=== PATIENT | female | born 1990 | race Caucasian/White ===

== ENCOUNTER 2018-01-02 16:59 | Inpatient (IN) ==
--- OUTSIDE RECORDS SUMMARY | 2018-01-02 17:03 | External Medical Summary | Continuity of Care Document ---
:1990 Author Organization [facility] Address [address] [place] [id number] Phone Care Team Providers Name Role Phone Elder DOAlvaroie Unavailable Unavailable Allergies, Adverse Reactions, Alerts Substance Reaction Severity Status HYDROCODONE BITARTRATE Nausea/Vomiting Unknown Active Medications Medication Instructions Dosage Effective Dates Status Comments (start - stop) heparin (porcine) inject 1ml by - Active 10,000 unit/mL subcutaneous route injection solution every 12 hours IRON (unknown take 1 by Oral route - Active strength) 2 times every day 28 mg take 1 tablet by Not Available - Active iron-800 mcg oral route every tablet day Problems Condition Effective Dates (start - stop) Clinical Status Supervision of other high risk - pregnancies, third trimester 34 weeks gestation of - Personal history of pulmonary embolism - Supervision of other high risk - pregnancies, first trimester Pap Smear Screening, Cervix - 13 weeks gestation of - Personal history of pulmonary embolism - Supervision of other high risk - pregnancies, third trimester 30 weeks gestation of - Personal history of pulmonary embolism - Supervision of other high risk - pregnancies, second trimester 24 weeks gestation of - Personal history of pulmonary embolism - Supervision of other high risk - pregnancies, second trimester 20 weeks gestation of - Personal history of pulmonary embolism - Supervision of other high risk - pregnancies, second trimester 16 weeks gestation of - Personal history of pulmonary embolism - Supervision of other high risk - pregnancies, third trimester 32 weeks gestation of - Personal history of pulmonary embolism - Supervision of other high risk - pregnancies, third trimester Oth diseases and conditions compl - preg/chldbrth 28 weeks gestation of - Personal history of pulmonary embolism - Supervision of other high risk - pregnancies, third trimester Oth diseases and conditions compl - preg/chldbrth 30 weeks gestation of - Personal history of pulmonary embolism - Supervision of other high risk - pregnancies, third trimester Oth diseases and conditions compl - preg/chldbrth 34 weeks gestation of - Personal history of pulmonary embolism - Supervision of other high risk - pregnancies, third trimester Oth diseases and conditions compl - preg/chldbrth 36 weeks gestation of - Personal history of pulmonary embolism - GERD Active Procedures Procedure Date OB Visit No Charge Immuniz admnin, 1 vac, sngl/combo 19 Yrs + TDAP VACCINE >7 IM Results Test Name Date and Time Measure Units Reference Range Abnormal Flag Comments Panel Description: GLUCOSE TOLERANCE TEST, GESTATIONAL,4SPEC(100G) GLUCOSE, FASTING 08:01:00 91 mg/dL 65-94 N GLUCOSE, 1 HOUR 08:01:00 159 mg/dL <180 N GLUCOSE, 2 HOUR 08:01:00 125 mg/dL <155 N GLUCOSE, 3 HOUR 08:01:00 62 mg/dL <140 L [id number] 08:01:00 See Below Verduzco/Cornellstan Criteria: Two or more values greater than the above reference intervals are suggestive of gestational diabetes. REPORT COMMENT:FASTING:YESTe st performed at [facility] [id number] MARIAJOSE [place], [place] [id number]: BALDEMAR RODRIGES DO,MPH Advance Directives Directive Yes / No Effective Date File Name Unknown Encounters Encounter Practice Location Reason(s) Diagnoses Date Provider Care Team Description For Visit Members Petra [place] Supervision of Lauren Referring In Womens other high risk 1-201 Mouna. Provider: Health [place], pregnancies, 8 700 [address] third Medical Lauren L, 1522, trimesterOth Center [address] [place] [address], diseases and , [facility], conditions compl 120, Center , preg/[id number] [place], Matt 120, [place] weeks gestation Julio Cesar ANGEL, tel: of [phone] [place], pregnancyPersonal , [place]. [id number]. history of tel: tel: pulmonary [phone] embolism Petra [place] Sobbing In Womens [address] Health [place], 8 700 [address], [place], [place], [address] [id number], 120, [place] Julio Cesar, tel: [place], [address], [place]. tel: [phone] Petra [place] Supervision of Sobbing Referring In Womens other high risk 5-[address] Provider: Health [place], pregnancies, 8 700 Mouna [address] third [email or web address] Medical Lauren L, 1522, weeks gestation Center [address] [place] [address], pregnancyPersonal Suite Center [id number], history of 120, Matt 120, [place] pulmonary Julio Cesar [place], tel: [place], [address], [id number]. [place]. tel: tel: [phone] Petra [place] Supervision of Lauren Referring In Womens Ultrasound other high risk 5-201 Mouna. Provider: Health PA, pregnancies, 8 700 Mouna [address] third Medical Lauren L, 1522, trimesterOth Center [address] [place] [address], diseases and , [facility], conditions compl 120, Center [id number], [id number] [place], Matt 120, [place] weeks gestation Julio Cesar ANGEL, tel: of [phone] [place], pregnancyPersonal , [place]. [id number]. history of tel: tel:[phone] pulmonary [phone] embolism [facility] Jul[facility] Supervision of Davide-0 Lauren Referring In Womens other high risk 2-201 Mouna. Provider: Health [place], pregnancies, 8 700 Mouna [address] third [id number] Medical Lauren L, 1522, weeks gestation Center [address] [place] [address], of Matt Bales, pregnancyPersonal 120, Center [id number], history of Julio Cesar Matt 120, [place] pulmonary Julio Cesar ANGEL, tel:+[phone] embolism [phone] [place], , [place]. [id number]. tel: tel:[phone] Petra [place] Supervision of Dec-2 Lauren Referring In Womens other high risk 0-201 Mouna. Provider: Health PA, pregnancies, 7 700 Mouna [address] third [email or web address] Medical Lauren L, 1522, weeks gestation Center [address] [place] [address], of Matt Bales, pregnancyPersonal 120, Center , history of Julio Cesar Matt 120, [place] pulmonary Julio Cesar ANGEL, tel: embolism [phone] [place], , [place]. [id number]. tel: tel:[phone] Petra [place] Supervision of Dec-2 Lauren Referring In Womens Ultrasound other high risk 0-201 Mouna. Provider: Health PA, pregnancies, 7 700 Mouna [address] third Medical Lauren L, 1522, trimesterOth Center [address] [place] [address], diseases and Matt Bales, conditions compl 120, Center [id number], [id number] Julio Cesar Matt 120, [place] weeks gestation Julio Cesar ANGEL, tel:+2 of [phone] [place], pregnancyPersonal , [place]. [id number]. history of tel: tel:[phone] pulmonary [phone] embolism [facility] Jul[facility]esar Supervision of Dec-0 Lauren Referring In Womens other high risk 6-201 Mouna. Provider: Health PA, pregnancies, 7 700 Mouna [address] third Medical Lauren L, 1522, trimesterOth Center [address] [place] [address], diseases and Matt Bales, conditions compl 120, Center [id number], preg/ Julio Cesar, Matt 120, [place] weeks gestation Julio Cesar ANGEL, tel:+ of [phone] [place], pregnancyPersonal , [place]. [id number]. history of tel: tel:[phone] pulmonary [phone] embolism [facility] Jul[facility] Supervision of Nov0 Lauren Referring In Womens other high risk 8-201 Mouna. Provider: Health PA, pregnancies, 7 700 Mouna [address] Box second Medical Lauren L, 1522, [email or web address] weeks Center [address] [place], gestation of Matt Bales, pregnancyPersonal 120, Center [id number], history of Julio Cesar, Matt 120, [place] pulmonary Julio Cesar ANGEL, tel:[phone] embolism [phone] [place], , [place]. [id number]. tel: tel:[phone] Petra [place] Supervision of Lauren Referring In Womens other high risk 1-201 Mouna. Provider: Health PA, pregnancies, 7 700 Mouna [address] Box second Medical Lauren L, 1522, [id number] weeks Center [address] [place] [address], gestation of Matt Bales, pregnancyPersonal 120, Center [id number], history of Julio Cesar, Matt 120, [place] pulmonary Julio Cesar ANGEL, tel:+2 embolism [phone] [place], , [place]. [id number]. tel: tel:[phone] Petra [place] Supervision of Jul- Lauren Referring In Womens other high risk 3-201 Mouna. Provider: Health PA, pregnancies, 7 700 Mouna PO Box second Medical Lauren L, 1522, [id number] weeks Center [address] [place] [address], gestation of Matt Bales, pregnancyPersonal 120, Center [id number], history of Julio Cesar, Matt 120, [place] pulmonary Julio Cesar ANGEL, tel:+2 embolism [phone] [place], , [place]. [id number]. tel: tel:[phone] Petra [place] Supervision of Lauren Referring In Womens other high risk 3-201 Mouna. Provider: Health PA, pregnancies, 7 700 Mouna PO Box first Medical Lauren L, 1522, trimesterPap Center [address] [place], Smear Screening, , [facility], [id number] weeks 120, Center [id number], gestation of [place], [facility] 120, [place] pregnancyPersonal Julio Cesar ANGEL, tel: history of [phone] [place], [address] pulmonary , [place]. [id number]. embolism tel: tel: [phone] Family History Family Member Diagnosis Age At Onset Paternal Grandfather Diabetes No family history of Venous Thrombosis Immunizations Vaccine Date Status Comments Tdap completed Source: New Immunization Record Tdap completed Source: New Immunization Record Influenza, injectable, completed Source: New Immunization Record quadrivalent, preservative free, 3 yrs or older Payers Payer name Insurance type Covered republican ID Authorization(s) [employer] - Medicaid [place] [id number] [employer] - Medicaid [place] [id number] [employer] - Medicaid [place] [id number] [employer] - Medicaid [place] [id number] Social History Type Description Quantity Date Captured Alcohol Use Details No Caffeine Use Details Unknown Tobacco Use Status Smoking Status Former smoker Vital Signs Date / Height Weight BMI Pulse Blood Temperature Respiratory Body Head BMI Time: Rate Pressure Rate Surface Circumference percentile Area 213.80 38.1 /72 -2018 lbs 1 mm[Hg] 10:42 kg/m AM eter (2) Chief Complaint And Reason For Visit Unknown Chief Complaint And Reason For Visit Reason For Referral Reason For Referral Unknown Plan Of Care Date Type Action Status Goal Tobacco cessation counseling completed Future Order: Radiology Order Ultrasound OB Follow-up ([id number]) Ordered Future Order: Radiology Order Ultrasound OB Follow-up ([id number]) Ordered Date Type Problem Goal Intervention Status Start Date Unknown. History Of Present Illness Encounter Date Complaint History Of Present Illness This patient has no known history of present illness Functional Status Encounter Date Functional Assessment Cognitive Assessment Unknown Medications Administered Medication Instructions Dosage Effective Dates (start - stop) Status Comments Drug Treatment Unknown Instructions Date Instruction Additional Information breast or bottle feeding anesthesia / analgesia plans sexual activity exercise HIV and other routine tests risk factors identified by history anticipated course of care nutrition and weight gain counseling, special diet toxoplasmosis precautions (cats / raw meat) indications for ultrasound influenza vaccine environmental / work hazards travel use of any medications (including supplements, vitamins, herbs, OTC drugs) domestic violence seat belt use childbirth classes / hospital facilities hospital registration genetic testing new ob handbook Zika virus assessment & precautions
--- OUTSIDE RECORDS SUMMARY | 2018-01-02 17:03 | External Medical Summary | Continuity of Care Document ---
:1990 Author Organization [facility] Address [address] [place], [place] [phone] Phone Care Team Providers Name Role Phone Elder DO, Tamara Unavailable Unavailable Allergies, Adverse Reactions, Alerts Substance Reaction Severity Status HYDROCODONE BITARTRATE Nausea/Vomiting Unknown Active Medications Medication Instructions Dosage Effective Dates Status Comments (start - stop) Lovenox 40 mg/0.4 mL inject 0.4 40 MG - Active subcutaneous syringe milliliter by subcutaneous route every day 28 mg take 1 tablet by Not Available - Active iron-800 mcg tablet oral route every day Problems Condition Effective Dates (start - [...] embolism - GERD Active Procedures Procedure Date Unknown Results Test Name Date and Time Measure Units Reference Range Abnormal Flag Comments Unknown NOTE: This patient has pending results not included in this document. Advance Directives Directive Yes / No Effective Date File Name Unknown Encounters Encounter Practice Location Reason(s) Diagnoses Date Provider Care Team Description For Visit Members Petra [place] Supervision of Lauren Referring In [facility] other high risk 1-201 Mouna. Provider: Health [place], pregnancies, 7 700 Mouna [address] second [id number] Festus Holden, 1522, weeks gestation of Center [address] [place], pregnancyPersonal Matt Bales, history of 120, Center , pulmonary embolism Julio Cesar [facility] 120, [place] Julio Cesar ANGEL, tel:[phone] [place], , [place]. [id number]. tel: tel: [phone] [facility] Sep-2 Lauren In Womens 7-201 Mouna. Health PA, 7 700 [address] Medical [address], Center [place], Matt Bales, 120, [id number], [place], [place], tel:[phone] , [place]. tel: [phone] Petra [place] Supervision of Sep-1 Lauren Referring In Womens other high risk 3-201 Mouna. Provider: Health MICHOACANO, pregnancies, 7 700 Mouna [address] second [id number] Medical Lauren L, 1522, weeks gestation of Center 700 [place], pregnancyPersonal Matt Bales, history of 120, [place] , pulmonary embolism Julio Cesar [facility] 120, [place] Julio Cesar ANGEL, tel:[phone] [place], , [place]. [id number]. tel: tel: [phone] Associates [facility] Supervision of Jun- Lauren Referring In Womens other high risk 3-201 Mouna. Provider: Health MICHOACANO, pregnancies, first 7 700 Mouna PO Box trimesterPap Smear Medical Lauren L, 1522, Screening, Center [address] [place] [address], [id number] weeks Matt Baels, gestation of 120, [place] , pregnancyPersonal Julio Cesar [facility] 120, [place] history of Julio Cesar ANGEL, tel: pulmonary embolism [phone] [place], , [place]. [id number]. tel: tel: [phone] Family History Family Member Diagnosis Age At Onset Paternal Grandfather Diabetes No family history of Venous Thrombosis Immunizations Vaccine Date Status Comments Influenza, injectable, completed Source: New Immunization Record quadrivalent, preservative free, 3 yrs or older Payers Payer name Insurance type Covered republican ID Authorization(s) [employer] - Medicaid MC [id number] [employer] - Medicaid [place] [id number] Social History Type Description Quantity Date Captured Unknown Vital Signs Date / Height Weight BMI Pulse Blood Temperature Respiratory Body Head BMI Time: Rate Pressure Rate Surface Circumference percentile Area Unknown Chief Complaint And Reason For Visit Unknown Chief Complaint And Reason For Visit Reason For Referral Reason For Referral Unknown Plan Of Care Date Type Action Status Goal Tobacco cessation counseling completed Appointment Jose Schrader BOOKED Date Type Problem Goal Intervention Status Start Date Unknown. History Of Present Illness Encounter Date Complaint History Of Present Illness This patient has no known history of present illness Functional Status Encounter Date Functional Assessment Cognitive Assessment Unknown Medications Administered Medication Instructions Dosage Effective Dates (start - stop) Status Comments Drug Treatment Unknown Instructions Date Instruction Additional Information sexual activity exercise HIV and other routine [...]
--- OUTSIDE RECORDS SUMMARY | 2018-01-02 17:04 | External Medical Summary | Continuity of Care Document ---
:1990 Author Organization [facility] Address [address] [place], [place] [phone] Phone Care Team Providers Name Role Phone [...] Procedures Procedure Date OB Visit No Charge Results Test Name Date and Time Measure Units Reference Range Abnormal Flag Comments Unknown Advance Directives Directive Yes / No Effective Date File Name Unknown Encounters Encounter Practice Location Reason(s) Diagnoses Date Provider Care Team Description For Visit Members [facility] Supervision of Lauren Referring In [facility] other high risk 3-201 Mouna. Provider: Health [place], pregnancies, 7 700 Mouna [address] second [id number] Festus Holden, 1522, weeks gestation of Center [address] [place], pregnancyPersonal Matt Bales Medical [place], history of 120, Center [id number], pulmonary embolism Matt [place] 120, [place] Julio Cesar ANGEL, tel:[phone] [place], , [place]. [id number]. tel: tel:[phone] [facility] Supervision of Lauren Referring In Womens other high risk 3-201 Mouna. Provider: Health PA, pregnancies, first 7 700 Mouna PO Box trimesterPap Smear Festus Holden, 1522, Screening, Center [address] [place], [id number] Dr [facility] Medical [place], gestation of 120, Center [id number], pregnancyPersonal Julio Cesar [facility] 120, [place] history of Julio Cesar ANGEL, tel: pulmonary embolism [phone] [place], , [place]. [id number]. tel: tel:[phone] Family History Family Member Diagnosis Age At Onset Paternal Grandfather Diabetes No family history of Venous Thrombosis Immunizations Vaccine Date Status Comments Unknown Payers Payer name Insurance type Covered alliance party ID Authorization(s) [employer] - Medicaid MC [id number] Social History Type Description Quantity Date Captured [...]
--- OUTSIDE RECORDS SUMMARY | 2018-01-02 17:04 | External Medical Summary ---
:[address] [facility] Address [address] [place] [address] Care Team Providers Name Role Phone ElderTamara Unavailable Unavailable PROBLEMS Type Condition ICD9-CM [id number] Onset Condition SNOMED Code Code Code Dates Status Problem Personal history V12.55 Active 617037655 of pulmonary embolism Problem Acute pharyngitis J02.8 Active 931949842 due to other specified organisms Problem Other dysphagia R13.19 Active 80494713 Problem Streptococcal sore 034.0 Active 42557061 throat Problem Other pulmonary 415.19 Active 0884566769185 embolism and infarction Problem Generalized R10.84 Active 772096203 abdominal pain Problem Gastro-esophageal K21.9 Active 445807024 reflux disease without esophagitis ALLERGIES Unknown Allergies SOCIAL HISTORY No smoking Hx information available PLAN OF CARE VITAL SIGNS MEDICATIONS Unknown Medications RESULTS No Results PROCEDURES No Known procedures IMMUNIZATIONS No Known Immunizations
[2018-01-02] MEDS ORDERED: METHYLERGONOVINE 0.2 MG/ML INJECTION IM PRN (17:23)
[2018-01-02] MEDS ORDERED: DINOPROSTONE 10 MG VAGINAL INSERT VG ONE (17:23)
[2018-01-02] MEDS ORDERED: LIDOCAINE 1% (10mg/ml) 2mL INJ PF SDV ID PRN (17:23)
[2018-01-02] MEDS ORDERED: SALINE FLUSH 10ml SYRINGE IV PRN (17:23)
[2018-01-02] MEDS ORDERED: CARBOPROST 250 MCG/ML INJECTION IM PRN (17:23)
[2018-01-02] MEDS ORDERED: ACETAMINOPHEN 500 MG TABLET PO PRN (17:23)
[2018-01-02] MEDS ORDERED: TERBUTALINE 1 MG/ML VIAL SQ PRN (17:23)
[2018-01-02] MEDS ORDERED: MAG-AL + SIM ORAL LIQUID 30ml PO PRN (17:23)
[2018-01-02 20:33] VITALS: BMI 36.4
[2018-01-03] MEDS ORDERED: AMPICILLIN 2 GM in NS 100 ML IV ONE (02:00)
[2018-01-03] MEDS: LR 1,000 ML IV PRN ×4 (02:07→22:35)
[2018-01-03] MEDS: AMPICILLIN 1 GM in NS 100 ML IV SCH ×5 (05:52→21:59)
[2018-01-03] MEDS: OXYTOCIN DRIP 30 UNIT/500 ML ML IV PRN (05:53)
[2018-01-03] MEDS: D5LR 1,000 ML IV PRN ×2 (05:53→15:07)
[2018-01-03] MEDS ORDERED: NALOXONE 0.4 MG/ML INJECTION IVP PRN (07:45)
[2018-01-03] MEDS ORDERED: DiphenhydrAMINE 50 MG/ML INJECTION IVP PRN (07:45)
[2018-01-03] MEDS ORDERED: ONDANSETRON 4 MG/2 ML INJECTION IVP PRN (07:45)
[2018-01-03] MEDS ORDERED: ROPIVACAINE 1% 10MG/ML INJ 200 MG, SUFentanil 50 MCG in NS 100 ML EPI PRN (07:45)
--- NOTE | 2018-01-03 07:45 | Anesthesia Preoperative Report ---
Anesthesia Epidural/Spinal Rec - Date and Time Date: 01/03/18 Procedure: Labor Epidural Plan: Epidural - Vital Signs /Para: P:0 - Medictaions & Allergies Inpatient Medications: Current Medications Acetaminophen (Tylenol) 500 - 1,000 mg PO Q4H PRN PRN Reason: Pain Al Hydroxide/Mg Hydroxide (Maalox Plus) 30 ml PO Q3H PRN PRN Reason: Indigestion Calcium Carbonate (Tums) 500 - 1,000 mg PO Q2H PRN PRN Reason: Indigestion Carboprost Tromethamine (Hemabate) 250 mcg IM O PRN PRN Reason: .Downtime Diphenhydramine HCl (Benadryl) 50 mg PO HS PRN PRN Reason: Sleep Lactated Ringer's (Lactated Ringers) 1,000 mls @ 999 mls/hr IV .Q1H1M PRN Last Admin: 01/03/18 07:27 Dose: 999 mls/hr Ampicillin Sodium 1 gm/ Sodium (Chloride) 100 mls @ 200 mls/hr IV Q4H AILYN Last Infusion: 01/03/18 06:22 Dose: Infused Dextrose/Lactated Ringer's (Dextrose 5%-Lactated Ringers) 1,000 mls @ 125 mls/ hr IV .Q8H PRN PRN Reason: Labor Last Admin: 01/03/18 05:53 Dose: 125 mls/hr Oxytocin (Pitocin Drip) 30 unit in 500 mls @ 2 mls/hr IV .Q24H PRN; Protocol PRN Reason: Induction/Augmentation Last Admin: 01/03/18 05:53 Dose: 2 mls/hr Lidocaine HCl (Xylocaine-Mpf 1% Vial) 0.2 mg ID O PRN PRN Reason: IV Start Methylergonovine Maleate (Methergine) 0.2 mg IM O PRN Misoprostol (Cytotec) 800 mcg NM ONCE PRN Sodium Chloride (Iv Flush) 10 - 80 ml IV PRN PRN PRN Reason: Flushing Terbutaline Sulfate (Brethine) 0.25 mg SQ PRN PRN Allergies/Adverse Reactions: Allergies Allergy/AdvReac Type Severity Reaction Status Date / Time hydrocodone Allergy Nausea Verified 01/02/18 20:30 - Home Medications Home Medications: Home Medications Medication Instructions Recorded Confirmed Type Heparin 1 ml INJ Q12HR 01/03/18 01/03/18 History Iron 1 tab PO DAILY 01/03/18 01/03/18 History 19 Tablet 1 tab PO DAILY 01/03/18 01/03/18 History - Medical History Respiratory: Reports: Pulmonary Embolism Cardiovascular: Reports: Other (PE at age 22) Gastrointestional: Reports: Gastroesophageal Reflux Disease (hx with bacterial infection) Neuro/Musculoskeletal: Denies: HX.MS.OSAR, Back Problems, Cerebrovascular Accident, Depression, Headaches, Loss of Consciousness, Muscle Weakness, Neuromuscular Disorder, Paralysis, Paresthesia, Syncope, Seizures, Other Renal/Endocrine: DENIES: Diabetes Mellitus Type 1, Diabetes Mellitus Type 2, Renal Failure, Dialysis, Thyroid Disease, Weight Loss, Weight Gain, Other Other History: Reports: Now - Surgical History Reproductive Surgery/Treatment: DENIES: Section Anesthesia Reactions: None Hx Family Anesthesia Reaction: No History of Motion Sickness: No - Social History Smoking Status: Former smoker Substance Use Type: does not use - Pertinent Findings Lab Data: CBC and BMP 01/02/18 17:42 - Physical Exam Respiratory Exam: lungs clear, bilateral breath sounds equal Cardiovascular Exam: regular rate and rhythm, no murmur - Airway Assessment Mallampati Score: III TMD: 3 Fingerbreadths Neck Extension: fair Overall Assessment: may be difficult intubation - ASA ASA Score: 2 - Discussion Discussion: Discussed risks/options/alternatives of anesthesia and questions answered. Patient consents. Nursing pain assessment noted. Anesthesia Discussion: spouse Attestation Statement: Prior to the delivery of any anesthetic medication, I examined the patient, developed the plan, obtained the patient's consent and discussed the risk and benefits of the procedure with the patient/guardian.
[2018-01-03] MEDS: CALCIUM CARBONATE Chewable 500mg TABLET PO PRN ×3 (10:05→17:26)
[2018-01-04] MEDS: OXYTOCIN DRIP 30 UNIT/500 ML ML IV PRN (02:16)
[2018-01-04] MEDS: D5LR 1,000 ML IV PRN (02:16)
[2018-01-04] MEDS: AMPICILLIN 1 GM in NS 100 ML IV SCH (02:21)
[2018-01-04] MEDS: CALCIUM CARBONATE Chewable 500mg TABLET PO PRN (03:25)
[2018-01-04] MEDS ORDERED: CEFAZOLIN PREMIX (MC ONLY) 2 GM/50 ML BAG IV ONE ×2 (03:47→07:07)
--- NOTE | 2018-01-04 07:06 | Progress Note ---
OB PP Progress Note Free Text - Date Date: 01/04/18 - Progress Note Progress Note: Pt has not progressed past AC/100%/-2 for about 3 hours. FHTs have been Cat 1 with good reactivity and variability. Pt is comfortable with her epidural. I have recommended for arrest of dilatation. We have reviewed the potential risks of surgery (bleeding, infection, etc) vs the risks of continuing induction. She agrees to move to . Q&A
[2018-01-04] MEDS ORDERED: FAMOTIDINE PB 20 MG/50 ML BAG IV ONE (07:07)
[2018-01-04] MEDS ORDERED: CITRIC ACID/SODIUM CITRATE 30ml PO ONE (07:07)
[2018-01-04] MEDS ORDERED: PHENYLEPHRINE INJ 10 MG/ML VIAL IV ONE (07:11)
[2018-01-04] MEDS ORDERED: ONDANSETRON 4 MG/2 ML INJECTION ONE (07:12)
[2018-01-04] MEDS: OXYTOCIN BOLUS BAG 30 UNIT/500 ML ML IV SCH ×2 (07:42→08:20)
[2018-01-04] MEDS ORDERED: MORPHINE SULFATE PF 5mg/10ml INJ (Duramorph) ONE (08:03)
--- NOTE | 2018-01-04 08:11 | Anesthesia Preoperative Report ---
Anesthesia Preoperative Record - Date and Time Date: 01/04/18 Preoperative Diagnosis: cervical ripening Proposed Procedure: NPO Since Date: 01/03/18 NPO Since Time: 23:00 Allergies/Adverse Reactions: Allergies Allergy/AdvReac Type Severity Reaction Status Date / Time hydrocodone Allergy Nausea Verified 01/02/18 20:30 - Vital Signs Height and Weight: Height 5 ft 4 in Weight 96.36 kg Body Mass Index 36.4 - Medications Inpatient Medications: Current Medications Acetaminophen (Tylenol) 500 - 1,000 mg PO Q4H PRN PRN Reason: Pain Al Hydroxide/Mg Hydroxide (Maalox Plus) 30 ml PO Q3H PRN PRN Reason: Indigestion Calcium Carbonate (Tums) 500 - 1,000 mg PO Q2H PRN PRN Reason: Indigestion Last Admin: 01/04/18 03:25 Dose: 1,000 mg Carboprost Tromethamine (Hemabate) 250 mcg IM O PRN PRN Reason: .Downtime Diphenhydramine HCl (Benadryl) 50 mg PO HS PRN PRN Reason: Sleep Diphenhydramine HCl (Benadryl) 25 - 50 mg IVP Q3H PRN PRN Reason: Itching Lactated Ringer's (Lactated Ringers) 1,000 mls @ 999 mls/hr IV .Q1H1M PRN Last Admin: 01/03/18 22:35 Dose: 999 mls/hr Ampicillin Sodium 1 gm/ Sodium (Chloride) 100 mls @ 200 mls/hr IV Q4H AILYN Last Infusion: 01/04/18 02:42 Dose: Infused Dextrose/Lactated Ringer's (Dextrose 5%-Lactated Ringers) 1,000 mls @ 125 mls/ hr IV .Q8H PRN PRN Reason: Labor Last Admin: 01/04/18 02:16 Dose: 95 mls/hr Oxytocin (Pitocin Drip) 30 unit in 500 mls @ 2 mls/hr IV .Q24H PRN; Protocol PRN Reason: Induction/Augmentation Last Admin: 01/04/18 02:16 Dose: 2 mls/hr Ropivacaine 200 mg/ Sufentanil Citrate 50 mcg/ Sodium Chloride 121 mls @ 0 mls/ hr EPI PRN PRN; As Directed PRN Reason: Protocol Last Admin: 01/04/18 04:25 Dose: 8 mls/hr Oxytocin (Pitocin Bolus Bag) 30 unit in 500 mls @ 999 mls/hr IV .Q31M AILYN Stop: 01/04/18 08:30 Last Admin: 01/04/18 07:42 Dose: 999 mls/hr Lidocaine HCl (Xylocaine-Mpf 1% Vial) 0.2 mg ID O PRN PRN Reason: IV Start Methylergonovine Maleate (Methergine) 0.2 mg IM O PRN Misoprostol (Cytotec) 800 mcg IL ONCE PRN Naloxone HCl (Narcan) 0.1 mg IVP Q2M PRN PRN Reason: Respiratory distress Ondansetron HCl (Zofran) 4 mg IVP Q6H PRN PRN Reason: Nausea &/or vomiting Sodium Chloride (Iv Flush) 10 - 80 ml IV PRN PRN PRN Reason: Flushing Terbutaline Sulfate (Brethine) 0.25 mg SQ PRN PRN Home Medications: Home Medications Medication Instructions Recorded Confirmed Type Heparin 1 ml INJ Q12HR 01/03/18 01/03/18 History Iron 1 tab PO DAILY 01/03/18 01/03/18 History 19 Tablet 1 tab PO DAILY 01/03/18 01/03/18 History Is Patient on Beta Magy?: No - Medical History Respiratory: Reports: Pulmonary Embolism Cardiovascular: Reports: Other (PE at age 22) Gastrointestional: Reports: Gastroesophageal Reflux Disease (hx with bacterial infection) Neuro/Musculoskeletal: Denies: HX.MS.OSAR, Back Problems, Cerebrovascular Accident, Depression, Headaches, Loss of Consciousness, Muscle Weakness, Neuromuscular Disorder, Paralysis, Paresthesia, Syncope, Seizures, Other Renal/Endocrine: DENIES: Diabetes Mellitus Type 1, Diabetes Mellitus Type 2, Renal Failure, Dialysis, Thyroid Disease, Weight Loss, Weight Gain, Other Other History: Reports: Now - Surgical History Surgery/Treatment: DENIES: Dialysis Reproductive Surgery/Treatment: DENIES: Section Anesthesia Reactions: None Hx Family Anesthesia Reaction: No History of Motion Sickness: No - Social History Smoking Status: Former smoker Hx Chewing Tobacco Use: No Second Hand Exposure: No Substance Use Type: does not use - Pertinent Findings Laboratory: CBC and BMP 01/02/18 17:42 - Physical Exam Respiratory Exam: Present: lungs clear, bilateral breath sounds equal Cardiovascular Exam: Present: regular rate and rhythm, no murmur - Airway Assessment Mallampati Score: III TMD: 3 Fingerbreadths Neck Extension: fair Overall Assessment: may be difficult intubation - ASA ASA Score: 2 - Plan Anesthesia: Neuroaxial Regional/Trunk Block: Epidural (dose up existing epidural) - Discussion Discussion: Discussed risks/options/alternatives of anesthesia and questions answered. Patient consents. Nursing pain assessment noted. Present for Discussion: spouse Attestation Statement: Prior to the delivery of any anesthetic medication, I examined the patient, developed the plan, obtained the patient's consent and discussed the risk and benefits of the procedure with the patient/guardian. - Additional Information Seen by Anesthesia: Yes
[2018-01-04] MEDS ORDERED: D5LR 1,000 ML IV SCH (09:18)
[2018-01-04] MEDS ORDERED: HYDROCORTISONE 2.5% CREAM 30gm RECTALLY PRN (09:18)
[2018-01-04] MEDS ORDERED: SIMETHICONE 80 MG CHEWABLE TABLET PO PRN (09:18)
[2018-01-04] MEDS ORDERED: ACETAMINOPHEN 500 MG TABLET PO PRN (09:18)
[2018-01-04] MEDS ORDERED: CALCIUM CARBONATE Chewable 500mg TABLET PO PRN (09:18)
[2018-01-04] MEDS ORDERED: DiphenhydrAMINE 25 MG CAPSULE PO PRN (09:18)
[2018-01-04] MEDS ORDERED: OXYTOCIN DRIP 30 UNIT/500 ML ML IV SCH (09:18)
[2018-01-04] MEDS: DOCUSATE CALCIUM 240 MG CAPSULE PO SCH (10:31)
[2018-01-04] MEDS: SIMETHICONE 80 MG CHEWABLE TABLET PO SCH ×2 (10:32→14:33)
[2018-01-04] MEDS ORDERED: ONDANSETRON 4 MG/2 ML INJECTION IVP ONE (11:01)
[2018-01-04] MEDS ORDERED: DEXAMETHASONE 20 MG/5 ML INJECTION IVP ONE (11:04)
[2018-01-04] MEDS ORDERED: LR 500 ML IV SCH (12:00)
[2018-01-04] MEDS ORDERED: DiphenhydrAMINE 50 MG/ML INJECTION IVP ONE (12:00)
[2018-01-04] MEDS: ENOXAPARIN 40 MG/0.4 ML INJECTION SQ SCH (14:38)
--- NOTE | 2018-01-04 16:01 | Operative Note ---
DATE OF OPERATION 01/04/2018 PREOPERATIVE DIAGNOSIS Arrest of dilatation. POSTOPERATIVE DIAGNOSIS Arrest of dilatation. PROCEDURES Primary low transverse section. SURGEON Mouna Aguilar MD PARCEL POST CLERK Sona Malik MD ANESTHESIA Continuous epidural STOCK PARTS FABRICATOR Joshua Peterson CRNA EBL 800 mL DESCRIPTION OF PROCEDURE Ms. Schrader was brought to the OR and placed on the OR table in the supine position with left lateral displacement. Her epidural analgesia was brought up to adequate surgical levels. A Green catheter had previously been placed to dependent drain. The abdomen was prepped and draped in the usual sterile fashion. A Pfannenstiel skin incision was made with a sharp knife. This was carried down to fascia. Fascia was incised transversely. Fascia was then bluntly and sharply dissected free of the rectus muscles. Rectus muscles were bluntly divided and the peritoneum was tented up. This was sharply entered and extended vertically. The bladder blade was inserted. The bladder was noted to be well below our area of operation. A low transverse uterine incision was made with a sharp knife. There was a small amount of clear amniotic fluid. Baby was delivered with quite a bit of difficulty in the LOT presentation. The head was large but the biggest struggle was with shoulder dystocia. Baby was then delivered and bulb suctioned on the abdomen. Cord was doubly clamped and baby was given to Dr. Boyd and his team for care. This is a liveborn female with Apgars of 6/8/8. She weighed 8 pounds, 15.4 ounces. The placenta was then manually removed intact. It had a normal configuration and normal- appearing three-vessel cord. The uterus was exteriorized and then the cavity swept clear of membranes. The myometrial incision was reapproximated with a running locking 0 Monocryl. It had extended on the right side a bit and this area was included in the closure. There was, however, a small amount of bleeding near the edge. This was grasped with a clamp and secured with a stick tie of 3-0 chromic. We reinspected and the myometrial incision was hemostatic. Uterus, tubes and ovaries were noted to be grossly normal and were returned to the abdominal cavity. Peritoneum was then reapproximated with a running nonlocking 2-0 Vicryl. Fascia was reapproximated with running nonlocking 0 Vicryl. Skin edges were reapproximated with a subcuticular style 3-0 undyed Vicryl. The wound was dressed with Steri-Strips and sterile dressing. Counts were correct postoperatively x2. The urine remained clear and free-flowing throughout the procedure. Ms. Schrader and her baby were then transferred to recovery in stable condition. NOMI
--- NOTE | 2018-01-04 16:54 | Anesthesia Postoperative Note ---
- Date and Time Date: 01/04/18 Time: 16:52 - Status Patient Participated in Evaluation: Patient Participated in Person Vital Signs: Temperature 98.0 F 01/04/18 13:00 Pulse Rate 91 01/04/18 13:00 Respiratory Rate 20 01/04/18 13:00 Blood Pressure 104/66 01/04/18 13:00 Pulse Oximetry 99 01/04/18 13:00 Respiratory Function: Airway Patent, Regular Respirations Cardiovascular Function: Regular Pulse Mental Status: Alert and Oriented Pain Intensity: 0 Hydration: Taking PO Fluids Complications During Recover: None Apparent Post Anesthesia Care Notes: Denies residual numbness. Moves bilat. feet - Follow-Up Instructions Instructions: Per Surgeon
[2018-01-05] MEDS: DOCUSATE CALCIUM 240 MG CAPSULE PO SCH (08:09)
[2018-01-05] MEDS: Oxycodone/Acetaminophen 5/325 1 TAB PO PRN ×4 (08:09→21:49)
[2018-01-05] MEDS: IBUPROFEN 800 MG TABLET PO PRN ×2 (08:09→17:16)
--- NOTE | 2018-01-05 09:25 | OB/GYN Progress Note ---
OB-PP Progress Note - General POD:: POD1 - Subjective Date: 01/05/18 Lochia: Minimal Pain: controlled Voiding: voiding Nausea or Vomiting Present: No - Objective Vital Signs: Last Vital Signs Temp 98.0 F 01/05/18 05:00 Pulse 100 01/05/18 05:00 Resp 16 01/05/18 05:00 BP 103/66 01/05/18 05:00 Pulse Ox 99 01/05/18 01:50 Urine Output: good General: alert and oriented Abdomen: fundus firm, non-tender Incision: dry, dressed Laboratory: Laboratory Results - last 24 hr 01/04/18 14:01 WBC 24.1 H D RBC 3.68 L Hgb 11.2 L Hct 33.5 L MCV 91.0 MCH 30.4 MCHC 33.4 RDW Std Deviation 42.2 Plt Count 158 MPV 9.8 - Assessment Assessment: SP, Primary C/S - Plan Plan: routine care
[2018-01-05] MEDS: ENOXAPARIN 40 MG/0.4 ML INJECTION SQ SCH (12:02)
[2018-01-05] MEDS: SIMETHICONE 80 MG CHEWABLE TABLET PO SCH ×4 (13:32→21:49)
[2018-01-06] MEDS: Oxycodone/Acetaminophen 5/325 1 TAB PO PRN ×3 (01:10→14:11)
[2018-01-06] MEDS: IBUPROFEN 800 MG TABLET PO PRN ×2 (01:10→09:55)
[2018-01-06 01:44] VITALS: O2SAT 99
--- NOTE | 2018-01-06 07:58 | Progress Note ---
OB PP Progress Note Free Text - Date Date: 01/06/18 - Progress Note Progress Note: POD#2 doing ok vss af no c/o cont current care path-krb
[2018-01-06] MEDS: ENOXAPARIN 40 MG/0.4 ML INJECTION SQ SCH (09:54)
[2018-01-06] MEDS: DOCUSATE CALCIUM 240 MG CAPSULE PO SCH (09:55)
[2018-01-06] MEDS: SIMETHICONE 80 MG CHEWABLE TABLET PO SCH ×3 (09:55→14:11)
[2018-01-06 14:19] VITALS: BP 130/73; PULSE 92; RESP 16; TEMP 97.9
== END 2018-01-06 15:19 | disposition home or self-care (01) | DRG 766 ==
LOC: CCU 16:59 → MC 17:00
PROVIDERS: ADMIT Obstetrics & Gynecology; ATTEND Obstetrics & Gynecology